=== PATIENT | female | born 1990 | race African-American/Black ===

== ENCOUNTER 2019-01-18 19:13 | Emergency (ER) | payer OTHER ==
[~2019-01-18] VITALS: Ht 160 cm; Wt 73.0 kg
[2019-01-18] MEDS ORDERED: IBUPROFEN 600MG TABLET PO STA (22:32)
[2019-01-18 22:51] LABS: CLARITY URINE CLEAR (CLEAR); COLOR URINE YELLOW (YELLOW); KETONES URINE 3+ (NEGATIVE); LEUKOCYTE ESTERASE URINE TRACE (NEGATIVE); NITRITE URINE NEGATIVE (NEGATIVE); OCCULT BLOOD URINE NEGATIVE (NEGATIVE); PROTEIN URINE NEGATIVE (NEGATIVE); SPECIFIC GRAVITY URINE 1.025 (1.005-1.030); UROBILINOGEN URINE 0.2 E.U./dL (0.2-1.0)
[2019-01-18 22:55] LABS: BASOPHILS % 0.7 % (0.0-2.0); EOSINOPHILS % 1.3 % (0.0-5.0); HEMATOCRIT. 43.9 % (36.0-48.0); HEMOGLOBIN. 15.1 g/dL (12.0-16.0); LYMPHOCYTES % 23.7 % (20.0-50.0); MEAN CORPUSCULAR HEMOGLOBIN 27.8 pg (28.0-32.0); MEAN CORPUSCULAR VOLUME 80.7 fL (81.0-99.0); MEAN PLATELET VOLUME 9.7 fl (7.4-10.4); MONOCYTES % 9.4 % (2.0-8.0); NEUTROPHILS % 64.9 % (40.0-76.0); PLATELET 248 x1000/uL (130-400); RED BLOOD CELL COUNT 5.43 mill/uL (4.2-5.4)
[2019-01-18 23:02] LABS: CHLORIDE 95 mEq/L (98-107)
[2019-01-18] MEDS ORDERED: SODIUM CHLORIDE 0.9% 1,000 ML IV ONE (23:16)
[2019-01-18] MEDS ORDERED: INSULIN REGULAR (HUMULIN R) 300UNITS/3ML IV ONE (23:30)
[2019-01-19 02:03] LABS: CHLORIDE 100 mEq/L (98-107)
[2019-01-19] MEDS ORDERED: SODIUM CHLORIDE 0.9% 1,000 ML IV ONE (02:16)
[2019-01-19] MEDS ORDERED: INSULIN REGULAR (HUMULIN R) 300UNITS/3ML SUBCUT SCH (02:30)
[2019-01-19 04:20] LABS: CHLORIDE 102 mEq/L (98-107)
[2019-01-19 05:05] VITALS: BP 136/92
== END 2019-01-19 05:38 | disposition home or self-care (01) ==
LOC: ER 19:13
DX: E11.8 Type 2 diabetes mellitus with unspecified complications (principal); B37.3 Candidiasis of vulva and vagina; F12.10 Cannabis abuse, uncomplicated; R51 Headache
CPT/HCPCS: 36415; 80048; 80053; 81003; 81025; 82010; 82962; 85025; 96372; 96374; 99283; J1815; J7030; Z7610